=== PATIENT | male | born 1980 | race Caucasian/White ===

== ENCOUNTER 2017-05-25 13:19 | Emergency (ER) | payer BC ==
[2017-05-25] MEDS ORDERED: KETOROLAC TROMETHAMINE 30 MG/ML VIAL IV ONE (13:39)
[2017-05-25 13:47] LABS: Hematocrit 43.2 % (42.0-52.0); Hemoglobin 15.4 gm/dL (13.5-18.0); Mean Cell Volume 85.7 fl (78-100); Mean Corpuscular Hemoglobin 30.6 pg (27-31); Mean Corpuscular Hgb Conc 35.6 g/dl (32-36); Mean Platelet Volume 9.6 fl (6.0-9.5); Neutrophil # 5.3 K/mm3 (1.3-6.0); Neutrophil % 69.7 % (42-75.0); Platelet Count 231 K/mm3 (150-450); Red Blood Count 5.04 M/mm3 (4.7-6.0); Red Cell Distribution Width 12.1 % (11.5-14.0); White Blood Count 7.6 K/mm3 (4.0-10.5)
[2017-05-25 14:00] LABS: Partial Thrombolplastin Time 27.8 Seconds (24-32)
[2017-05-25 14:03] LABS: Troponin I Less than 0.017 ng/ml (0.00-0.10)
[2017-05-25 14:16] LABS: ALT 25 U/L (19-67); AST 12 U/L (0-48); Albumin * 3.8 gm/dl (3.4-5.0); Alkaline Phosphatase * 73 U/L (50-170); Anion Gap 11.5 mmol/L (6.8-13.8); BUN/Creatinine Ratio 12.6 (9.0-21.6); Bilirubin, Total 0.6 mg/dL (0.0-1.1); Blood Urea Nitrogen 12 mg/dL (6-23); CRP 1.5 mg/dL (0.0-0.9); Ca. Corrected For Albumin 8.3 mg/dL (8.4-10.2); Calcium * 8.5 mg/dL (7.9-10.9); Carbon Dioxide 30.3 mmol/L (24-32.6); Chloride 103 mmol/L (97-106); Glucose * 118 mg/dL (70-110); Potassium 3.8 mmol/L (3.4-4.6); Sodium 141 mmol/L (132-142); Total Protein 7.1 gm/dL (6.2-8.2)
[2017-05-25] MEDS ORDERED: KETOROLAC TROMETHAMINE 30 MG/ML VIAL IM ONE (14:16)
[2017-05-25] MEDS ORDERED: KETOROLAC TROMETHAMINE 30 MG/ML VIAL ONE (14:17)
[2017-05-25 14:19] LABS: TSH * 1.534 uIU/mL (0.358-3.74)
--- NOTE | 2017-05-25 15:13 | ERNOTE ---
Chest Pain/Cardiac HPI Date of Service: 05/25/17 Chief Complaint: Chest Pain Time Seen by Provider: 05/25/17 13:35 Source: patient Exam Limitations: no limitations Immunizations: IMMUNIZATION HX Immunizations Up to Date No History of Influenza Vaccine No Hx Pneumococcal Vaccination No Allergies/Adverse Reactions: Allergies No Known Allergies Allergy (Unverified 05/25/17 13:30) Home Medications: HOME MEDICATIONS NK [No Home Medication] 05/25/17 [Last Taken Unknown] Narrative: Patient presents to the ED with chest pain for 4 days. He relates that he first noticed the pain 4 days ago left upper chest. It has been coming and going but was persistent throughout the day yesterday. It feels better today. He relates basically having pain constantly yesterday. Always left upper chest. He relates this started with some URI Sx and some cough but that too has essentially resolved. He states he has still noticed this discomfort throughout the day today but it is much better. He states his made him come in to get checked out. No fever. No radiation of the pain. No SOB. No diaphoresis. Has not seen anyone else for this. Nothing clearly makes it better or worse. Timing: constant Severity/Quality: mild Location: left chest Chest Pain Radiation: no radiation Activities at Onset: none Modifying Factors - Improves: Present: nothing Modifying Factors - Worsens: Present: nothing Associated Symptoms: Present: cough. Absent: headache, syncope, shortness of breath, fever/chills, nausea, vomiting, abdominal pain, weakness Prior Chest Pain/Cardiac Workup: Denies: prior chest pain Prior Treatment: Denies: recently seen Review of Systems - Review of Systems Constitutional: Absent: fever Respiratory: Present: See HPI Cardiology: Present: See HPI Gastrointestinal/Abdominal: Absent: abdominal pain Genitourinary: Absent: dysuria Musculoskeletal: Present: other - No calf pain or leg swelling Skin: Absent: rash Neurological: Absent: weakness - Patient's Past Medical History Patient History - Medical: No pertinent hx Patient History - Cardiac/Respiratory: No pertinent hx Patient History - Cancer: No Hx of Cancer Patient History - Surgical Procedures: No surgical history Patient History - Other: None - Social History Living Situations: home Psych History: No pertinent hx Smoking Status: Never smoker Alcohol Use: occasionally Drug Use: none - Immunizations Immunizations Up to Date: No Hx Pneumococcal Vaccination: No History of Influenza Vaccine: No Physical Exam - Physical Exam General Appearance: Present: alert, no apparent distress Head Exam: Present: normal inspection, no evidence of injury Eye Exam: Normal inspection: bilateral, PERRL: bilateral Ears, Nose, Throat: Present: normal ENT inspection Neck: Present: normal inspection Respiratory: Present: no respiratory distress, normal breath sounds, no accessory muscle use, lungs clear, other - tenderness left upper chest Cardiovascular/Chest: Present: regular rate, rhythm, no murmur, normal peripheral pulses. Absent: friction rub Gastrointestinal/Abdominal: Present: normal bowel sounds, nontender, nondistended, soft Back Exam: Present: normal range of motion Extremity Exam: Present: normal inspection, normal range of motion, no edema, other - no findings of DVT Neurological Exam: Present: alert, normal mood/affect, no motor/sensory deficits Skin Exam: Present: normal color, warm/dry ED Progress - Results and Orders Patient's Lab Results:: I have reviewed the patient's lab results. - Vital Signs Patient's Vital Signs:: I have reviewed the patient's vital signs. Vital Signs: Vital Signs 05/25/17 05/25/17 05/25/17 13:25 13:30 14:20 Temperature 36.7 C Pulse Rate 94 87 76 Respiratory 20 13 Rate Blood Pressure 135/73 121/73 O2 Sat by Pulse 100 100 Oximetry 05/25/17 14:38 Temperature Pulse Rate 70 Respiratory 19 Rate Blood Pressure 110/64 O2 Sat by Pulse 100 Oximetry - EKG EKG: NSR EKG read: Interp. by me EKG Comments: NSR rate 88. RBBB, no old for comparison. No evidence of STEMI. - X-Ray X-Ray #1 X-Ray: chest Interpretation: Interp. by me X-ray Comments: I reviewed official radiology report NAPP - Progress/Reassessment Chief Complaint: Chest Pain Progress Note-Subjective: 05/25/17 15:08 Patient has d-dimer in normal range, clinically noting to suggest PE or aortic dissection, no CTA indicated. No clinical findings of DVT. Constant pain for well over 1 day with negative troponin, no need for second trop in this setting. Atypical pain. He feels like going home. Nothing to suggest acute bacterial infection. No other clear life threat identified. I discussed warning signs and reasons to return as well as the need for close f/u. 05/25/17 15:12 I discussed with him his BS and need for re-check Monday. Clinically nothing to suggest pericarditis or myocarditis or pericardial effusion. Departure Clinical Impression: Atypical chest pain - Departure Disposition: Home self-care Condition: Stable Additional Instructions: Rest. Fluids. Follow-up Monday with your doctor (May 29 at 9:30am) for a re-check. Return for increased pain, trouble breathing, fever or if your condition worsens or changes in any way. Referrals: Conchita Mathew MD [Primary Care Provider] -
[2017-05-25 15:26] VITALS: BP 110/67
== END 2017-05-25 15:25 | disposition home or self-care (01) ==
LOC: ER 13:19
DX: R07.89 Other chest pain (principal)